=== PATIENT | male | born 1945 | race Caucasian/White ===

== ENCOUNTER 2017-10-22 12:02 | Emergency (ER) | payer OTHER ==
[~2017-10-22] VITALS: Ht 165.1 cm; Wt 95.2 kg
[~2017-10-22 12:02] MED LIST: GABA100; GABA300 PO; LORA.5 PO; Norco 5-325 Ta1 EACH PO; ONDA4ODT; ROXICODONE5 MG PO
[2017-10-22] MEDS ORDERED: GLIP2.5ER PO (12:33)
[2017-10-22] MEDS ORDERED: VITAMIN D250000 UNIT PO (12:33)
[2017-10-22] MEDS ORDERED: BACL10 PO (12:33)
== END 2017-10-22 13:31 | disposition home or self-care (01) ==
LOC: ER 12:02
DX: S82.62XA Displaced fracture of lateral malleolus of left fibula, initial encounter for closed fracture (principal); X50.9XXA Other and unspecified overexertion or strenuous movements or postures, initial encounter; Z88.0 Allergy status to penicillin; Z88.5 Allergy status to narcotic agent; Z79.899 Other long term (current) drug therapy; F17.200 Nicotine dependence, unspecified, uncomplicated
CPT/HCPCS: 29515; 73610; 99283

== ENCOUNTER 2019-05-31 19:21 | Emergency (ER) | payer OTHER ==
[~2019-05-31] VITALS: Ht 165.1 cm; Wt 99.8 kg
[~2019-05-31 19:21] MED LIST changes: +BACL10 PO; +GLIP2.5ER PO; +VITAMIN D250000 UNIT PO
[2019-05-31] MEDS ORDERED: METF500 PO (19:42)
[2019-05-31] MEDS ORDERED: PREG75 PO (19:42)
[2019-05-31] MEDS ORDERED: THERA-D2000 UNIT PO (19:43)
[2019-05-31] MEDS ORDERED: ACET500 PO (19:43)
[2019-05-31] MEDS ORDERED: BISA10S PR (19:44)
[2019-05-31 19:50] LABS: BASOPHILS ABSOLUTE AUTO 0.11 K/mm3 (0.00-0.23); BASOPHILS PERCENT AUTO 1 % (0-2); EOSINOPHILS ABSOLUTE AUTO 1.29 K/mm3 (0.00-0.68); EOSINOPHILS PERCENT AUTO 10 % (0-6); Hematocrit 41.5 % (37.0-53.0); Hemoglobin 13.4 g/dL (13.5-17.5); IMMATURE GRAN ABSOLUTE AUTO 0.15 K/mm3 (0.00-0.10); IMMATURE GRAN PERCENT AUTO 1 % (0-1); LYMPHOCYTES ABSOLUTE AUTO 2.25 K/mm3 (0.84-5.20); LYMPHOCYTES PERCENT AUTO 17 % (21-46); MONOCYTES ABSOLUTE AUTO 1.04 K/mm3 (0.16-1.47); MONOCYTES PERCENT AUTO 8 % (4-13); Mean Corpuscular HGB 31.5 pg (26.0-34.0); Mean Corpuscular HGB Conc 32.3 g/dL (31.5-36.5); Mean Corpuscular Volume 97 fL (80-100); Mean Platelet Volume 11.4 fL (9.1-12.4); NEUTROPHILS PERCENT AUTO 64 % (41-73); Platelet Count 239 K/mm3 (150-400); RDW Coefficient Variation 13.3 % (11.7-14.2); RDW Standard Deviation 47.4 fL (35.1-46.3); Red Blood Cell Count 4.26 M/mm3 (4.30-5.90); White Blood Cell Count 13.34 K/mm3 (4.00-11.30)
[2019-05-31 20:24] LABS: Albumin, Blood 3.2 g/dL (3.4-5.0); Albumin/Globulin Ratio 0.8 (0.8-1.8); Bilirubin, Total 0.1 mg/dL (0.1-1.0); Bun/Creatinine Ratio 15.1 (12.0-20.0); Calcium, Blood 8.7 mg/dL (8.5-10.1); Creatinine, Blood 1.52 mg/dL (0.60-1.20); Globulin, Blood 3.8 g/dL (2.2-4.0); Potassium, Blood 4.5 mmol/L (3.5-5.5)
[2019-05-31] MEDS ORDERED: MOTION RELIEF25 MG PO ×2 (21:40→22:03)
== END 2019-05-31 22:40 | disposition home or self-care (01) ==
LOC: ER 19:21
PROVIDERS: Emergency Medicine
DX: M54.2 Cervicalgia (principal); R42 Dizziness and giddiness; E11.9 Type 2 diabetes mellitus without complications; G80.9 Cerebral palsy, unspecified; Z87.891 Personal history of nicotine dependence; Z88.0 Allergy status to penicillin; Z88.5 Allergy status to narcotic agent; Z88.8 Allergy status to other drugs, medicaments and biological substances
CPT/HCPCS: 70450; 72125; 80053; 85025; 93005; 93010; 99284-25

== ENCOUNTER 2020-04-11 11:25 | Emergency (ER) | payer OTHER ==
[~2020-04-11] VITALS: Ht 165.1 cm; Wt 83.9 kg
[~2020-04-11 11:25] MED LIST changes: +ACET500 PO; +BISA10S PR; +BISMATROL525 MG/15 PO; +FURO20 PO; +METF500 PO; +MOTION RELIEF25 MG PO; +PREG75 PO; +THERA-D2000 UNIT PO; +TIZA4 PO; +VITAMIN D32000 UNI1 PO; +Zithromax250 MG PO
[2020-04-11] MEDS ORDERED: PREG300 PO (12:35)
[2020-04-11] MEDS ORDERED: METF500 PO (12:35)
[2020-04-11] MEDS ORDERED: TIZA4 PO (12:35)
[2020-04-11] MEDS ORDERED: Vitamin D2000 UNIT PO (12:35)
[2020-04-11 14:38] LABS: BASOPHILS ABSOLUTE AUTO 0.02 K/mm3 (0.00-0.23); BASOPHILS PERCENT AUTO 0 % (0-2); EOSINOPHILS ABSOLUTE AUTO 0.23 K/mm3 (0.00-0.68); EOSINOPHILS PERCENT AUTO 4 % (0-6); Hematocrit 46.6 % (37.0-53.0); Hemoglobin 15.1 g/dL (13.5-17.5); IMMATURE GRAN ABSOLUTE AUTO 0.04 K/mm3 (0.00-0.10); IMMATURE GRAN PERCENT AUTO 1 % (0-1); LYMPHOCYTES ABSOLUTE AUTO 1.55 K/mm3 (0.84-5.20); LYMPHOCYTES PERCENT AUTO 29 % (21-46); MONOCYTES ABSOLUTE AUTO 0.91 K/mm3 (0.16-1.47); MONOCYTES PERCENT AUTO 17 % (4-13); Mean Corpuscular HGB 30.3 pg (26.0-34.0); Mean Corpuscular HGB Conc 32.4 g/dL (31.5-36.5); Mean Corpuscular Volume 93 fL (80-100); Mean Platelet Volume 12.6 fL (9.1-12.4); NEUTROPHILS ABSOLUTE AUTO 2.56 K/mm3 (1.96-9.15); NEUTROPHILS PERCENT AUTO 48 % (41-73); Platelet Count 121 K/mm3 (150-400); RDW Coefficient Variation 13.5 % (11.7-14.2); RDW Standard Deviation 45.5 fL (35.1-46.3); Red Blood Cell Count 4.99 M/mm3 (4.30-5.90); White Blood Cell Count 5.31 K/mm3 (4.00-11.30)
[2020-04-11 16:15] LABS: Albumin/Globulin Ratio 0.7 (0.8-1.8); Bilirubin, Total 0.3 mg/dL (0.1-1.0); Bun/Creatinine Ratio 19.3 (12.0-20.0); Calcium, Blood 8.4 mg/dL (8.5-10.1); Creatinine, Blood 1.4 mg/dL (0.60-1.20); Globulin, Blood 4.3 g/dL (2.2-4.0); Total Protein, Blood 7.3 g/dL (6.4-8.2)
== END 2020-04-11 18:15 | disposition home or self-care (01) ==
LOC: ER 11:25
PROVIDERS: Physician Assistant
DX: U07.1 COVID-19 (principal); F22 Delusional disorders; E11.9 Type 2 diabetes mellitus without complications; F17.200 Nicotine dependence, unspecified, uncomplicated
CPT/HCPCS: 36415; 70450; 71045; 80053; 85025; 99285-25

== ENCOUNTER 2020-07-24 12:13 | Emergency (ER) | payer OTHER ==
[~2020-07-24] VITALS: Ht 165.1 cm; Wt 86.2 kg
[~2020-07-24 12:13] MED LIST changes: +PREG300 PO; +Vitamin D2000 UNIT PO
[2020-07-24] MEDS ORDERED: FUROSEMIDE20 MG PO (13:08)
== END 2020-07-24 18:02 | disposition home or self-care (01) ==
LOC: ER 12:13
DX: J40 Bronchitis, not specified as acute or chronic (principal); E11.9 Type 2 diabetes mellitus without complications; F17.200 Nicotine dependence, unspecified, uncomplicated; Z79.84 Long term (current) use of oral hypoglycemic drugs
CPT/HCPCS: 71046; 99284-25

== ENCOUNTER 2020-10-22 00:27 | Day surgery (SDC) | payer OTHER ==
[~2020-10-22 00:27] MED LIST changes: +FUROSEMIDE20 MG PO
== END 2020-10-22 23:28 | disposition home or self-care (01) ==
LOC: WOUND 00:27
DX: E11.621 Type 2 diabetes mellitus with foot ulcer (principal); L97.512 Non-pressure chronic ulcer of other part of right foot with fat layer exposed; L97.519 Non-pressure chronic ulcer of other part of right foot with unspecified severity; E11.622 Type 2 diabetes mellitus with other skin ulcer; L89.892 Pressure ulcer of other site, stage 2; L89.312 Pressure ulcer of right buttock, stage 2; N18.9 Chronic kidney disease, unspecified; E11.22 Type 2 diabetes mellitus with diabetic chronic kidney disease; Z88.5 Allergy status to narcotic agent
CPT/HCPCS: G0463

== ENCOUNTER 2020-10-29 00:55 | Day surgery (SDC) | payer OTHER | END 2020-10-30 02:59 | disposition home or self-care (01) | LOC: WOUND 00:55 | DX: E11.621 Type 2 diabetes mellitus with foot ulcer (principal); L97.519 Non-pressure chronic ulcer of other part of right foot with unspecified severity; L89.312 Pressure ulcer of right buttock, stage 2; E11.622 Type 2 diabetes mellitus with other skin ulcer; L89.892 Pressure ulcer of other site, stage 2 | CPT/HCPCS: A9270; G0463 ==

== ENCOUNTER 2020-11-05 00:39 | Day surgery (SDC) | payer OTHER | END 2020-11-05 23:42 | disposition home or self-care (01) | LOC: WOUND 00:39 | DX: E11.621 Type 2 diabetes mellitus with foot ulcer (principal); L97.512 Non-pressure chronic ulcer of other part of right foot with fat layer exposed; L97.519 Non-pressure chronic ulcer of other part of right foot with unspecified severity; L89.899 Pressure ulcer of other site, unspecified stage; L89.312 Pressure ulcer of right buttock, stage 2; L89.322 Pressure ulcer of left buttock, stage 2; Z99.3 Dependence on wheelchair | CPT/HCPCS: A9270 ==

== ENCOUNTER 2020-11-15 01:26 | Day surgery (SDC) | payer OTHER | END 2020-11-15 23:55 | disposition home or self-care (01) | LOC: WOUND 01:26 | DX: E11.621 Type 2 diabetes mellitus with foot ulcer (principal); L97.512 Non-pressure chronic ulcer of other part of right foot with fat layer exposed; E11.622 Type 2 diabetes mellitus with other skin ulcer; L89.892 Pressure ulcer of other site, stage 2; L89.95 Pressure ulcer of unspecified site, unstageable; L89.312 Pressure ulcer of right buttock, stage 2 | CPT/HCPCS: A9270 ==

== ENCOUNTER 2020-11-27 04:17 | Day surgery (SDC) | payer OTHER | END 2020-11-27 23:00 | disposition home or self-care (01) | LOC: WOUND 04:17 | DX: L89.892 Pressure ulcer of other site, stage 2 (principal); E11.621 Type 2 diabetes mellitus with foot ulcer; L97.522 Non-pressure chronic ulcer of other part of left foot with fat layer exposed; E11.622 Type 2 diabetes mellitus with other skin ulcer; I73.9 Peripheral vascular disease, unspecified; I87.2 Venous insufficiency (chronic) (peripheral); N39.42 Incontinence without sensory awareness; Z88.5 Allergy status to narcotic agent; Z88.0 Allergy status to penicillin | CPT/HCPCS: A9270; G0463 ==

== ENCOUNTER 2020-12-12 01:23 | Day surgery (SDC) | payer OTHER | END 2020-12-12 23:15 | disposition home or self-care (01) | LOC: WOUND 01:23 | DX: L89.892 Pressure ulcer of other site, stage 2 (principal); E11.621 Type 2 diabetes mellitus with foot ulcer; L97.512 Non-pressure chronic ulcer of other part of right foot with fat layer exposed; E11.622 Type 2 diabetes mellitus with other skin ulcer; E11.51 Type 2 diabetes mellitus with diabetic peripheral angiopathy without gangrene; I87.2 Venous insufficiency (chronic) (peripheral); N39.42 Incontinence without sensory awareness | CPT/HCPCS: A9270; G0463 ==

== ENCOUNTER 2020-12-19 01:30 | Day surgery (SDC) | payer OTHER | END 2020-12-19 22:48 | disposition home or self-care (01) | LOC: WOUND 01:30 | DX: E11.621 Type 2 diabetes mellitus with foot ulcer (principal); L97.512 Non-pressure chronic ulcer of other part of right foot with fat layer exposed; L89.892 Pressure ulcer of other site, stage 2; E11.51 Type 2 diabetes mellitus with diabetic peripheral angiopathy without gangrene; I87.2 Venous insufficiency (chronic) (peripheral); N39.42 Incontinence without sensory awareness; Z88.0 Allergy status to penicillin; Z88.5 Allergy status to narcotic agent; Z91.018 Allergy to other foods | CPT/HCPCS: A9270; G0463 ==

== ENCOUNTER 2020-12-26 02:27 | Day surgery (SDC) | payer OTHER | END 2020-12-26 23:18 | disposition home or self-care (01) | LOC: WOUND 02:27 | DX: E11.621 Type 2 diabetes mellitus with foot ulcer (principal); L97.512 Non-pressure chronic ulcer of other part of right foot with fat layer exposed; L97.422 Non-pressure chronic ulcer of left heel and midfoot with fat layer exposed; L89.892 Pressure ulcer of other site, stage 2; E11.622 Type 2 diabetes mellitus with other skin ulcer; E11.51 Type 2 diabetes mellitus with diabetic peripheral angiopathy without gangrene; I87.2 Venous insufficiency (chronic) (peripheral); N39.42 Incontinence without sensory awareness | CPT/HCPCS: A9270; G0463 ==

== ENCOUNTER 2021-01-02 00:27 | Day surgery (SDC) | payer OTHER | END 2021-01-02 23:24 | disposition home or self-care (01) | LOC: WOUND 00:27 | DX: E11.622 Type 2 diabetes mellitus with other skin ulcer (principal); L97.512 Non-pressure chronic ulcer of other part of right foot with fat layer exposed; L89.892 Pressure ulcer of other site, stage 2; E11.621 Type 2 diabetes mellitus with foot ulcer; E11.51 Type 2 diabetes mellitus with diabetic peripheral angiopathy without gangrene; I87.2 Venous insufficiency (chronic) (peripheral); N39.42 Incontinence without sensory awareness | CPT/HCPCS: G0463 ==

== ENCOUNTER 2021-01-16 08:36 | Day surgery (SDC) | payer OTHER | END 2021-01-16 23:52 | disposition home or self-care (01) | LOC: WOUND 08:36 | DX: Z09 Encounter for follow-up examination after completed treatment for conditions other than malignant neoplasm (principal); E11.51 Type 2 diabetes mellitus with diabetic peripheral angiopathy without gangrene; I87.2 Venous insufficiency (chronic) (peripheral); N39.42 Incontinence without sensory awareness; Z99.3 Dependence on wheelchair; Z86.31 Personal history of diabetic foot ulcer | CPT/HCPCS: G0463 ==

== ENCOUNTER 2021-06-28 16:30 | Inpatient (IN) | payer OTHER ==
[~2021-06-28] VITALS: Ht 172.7 cm; Wt 84.7 kg
[2021-06-28] MEDS ORDERED: RYBELSUS7 MG (17:56)
[2021-06-28 18:19] LABS: BASOPHILS ABSOLUTE AUTO 0.12 K/mm3 (0.00-0.23); BASOPHILS PERCENT AUTO 1 % (0-2); EOSINOPHILS ABSOLUTE AUTO 0.33 K/mm3 (0.00-0.68); EOSINOPHILS PERCENT AUTO 2 % (0-6); Hematocrit 38.6 % (37.0-53.0); Hemoglobin 12.6 g/dL (13.5-17.5); IMMATURE GRAN ABSOLUTE AUTO 0.94 K/mm3 (0.00-0.10); IMMATURE GRAN PERCENT AUTO 5 % (0-1); LYMPHOCYTES ABSOLUTE AUTO 1.24 K/mm3 (0.84-5.20); LYMPHOCYTES PERCENT AUTO 7 % (21-46); MONOCYTES ABSOLUTE AUTO 1.39 K/mm3 (0.16-1.47); MONOCYTES PERCENT AUTO 7 % (4-13); Mean Corpuscular HGB 30.3 pg (26.0-34.0); Mean Corpuscular HGB Conc 32.6 g/dL (31.5-36.5); Mean Corpuscular Volume 93 fL (80-100); Mean Platelet Volume 10.9 fL (9.1-12.4); NEUTROPHILS ABSOLUTE AUTO 14.75 K/mm3 (1.96-9.15); NEUTROPHILS PERCENT AUTO 79 % (41-73); Platelet Count 317 K/mm3 (150-400); RDW Coefficient Variation 15.5 % (11.7-14.2); RDW Standard Deviation 53.4 fL (35.1-46.3); Red Blood Cell Count 4.16 M/mm3 (4.30-5.90); White Blood Cell Count 18.77 K/mm3 (4.00-11.30)
[2021-06-28 18:31] LABS: Albumin, Blood 2.7 g/dL (3.4-5.0); Albumin/Globulin Ratio 0.5 (0.8-1.8); Bilirubin, Total 0.3 mg/dL (0.1-1.0); Bun/Creatinine Ratio 14.9 (12.0-20.0); Calcium, Blood 9.9 mg/dL (8.5-10.1); Creatinine, Blood 1.81 mg/dL (0.60-1.20); Globulin, Blood 5.1 g/dL (2.2-4.0); Potassium, Blood 3.9 mmol/L (3.5-5.5); Total Protein, Blood 7.8 g/dL (6.4-8.2)
[2021-06-28 19:34] LABS: Source, Urine Clean Catch
[2021-06-28 19:37] LABS: Bilirubin, Urine Neg (Neg); Blood, Urine 3+ (Neg); Glucose Qualitative, Urine Neg (Neg); Ketones, Urine Neg (Neg); Leukocyte Esterase, Urine 3+ (Neg); Nitrite, Urine Pos (Neg); Protein, Urine 3+ (Neg); Specific Gravity, Urine 1.015 (1.003-1.022); Urobilinogen, Urine NORM (Normal)
[2021-06-28 19:45] LABS: Appearance, Urine Hazy (Clear); Color, Urine Pale Yellow (P-Yellow)
[2021-06-28 19:46] LABS: Amorphous Mod (0-Heavy); Bacteria Many /hpf; Squamous Epithelial Cells Rare /hpf (Few); Yeast/Fungi Urine Rare /hpf
[2021-06-28 19:47] LABS: Granular Casts Rare /lpf (0); Hyaline Casts Rare /lpf (0-2)
[2021-06-28 23:51] LABS: Influenza A, PCR NEGATIVE (NEGATIVE); Influenza B, PCR NEGATIVE (NEGATIVE); Resp Syncytial Virus, PCR NEGATIVE (NEGATIVE); SARS-Cov-2 (COVID-19) PCR, MMC NEGATIVE (NEGATIVE)
[2021-06-29 04:16] LABS: BASOPHILS ABSOLUTE AUTO 0.09 K/mm3 (0.00-0.23); BASOPHILS PERCENT AUTO 1 % (0-2); EOSINOPHILS ABSOLUTE AUTO 0.42 K/mm3 (0.00-0.68); EOSINOPHILS PERCENT AUTO 2 % (0-6); Hematocrit 35.2 % (37.0-53.0); Hemoglobin 11.5 g/dL (13.5-17.5); IMMATURE GRAN ABSOLUTE AUTO 0.82 K/mm3 (0.00-0.10); IMMATURE GRAN PERCENT AUTO 5 % (0-1); LYMPHOCYTES ABSOLUTE AUTO 1.26 K/mm3 (0.84-5.20); LYMPHOCYTES PERCENT AUTO 7 % (21-46); MONOCYTES ABSOLUTE AUTO 1.69 K/mm3 (0.16-1.47); MONOCYTES PERCENT AUTO 9 % (4-13); Mean Corpuscular HGB 30.3 pg (26.0-34.0); Mean Corpuscular HGB Conc 32.7 g/dL (31.5-36.5); Mean Corpuscular Volume 93 fL (80-100); Mean Platelet Volume 10.3 fL (9.1-12.4); NEUTROPHILS PERCENT AUTO 76 % (41-73); Platelet Count 330 K/mm3 (150-400); RDW Coefficient Variation 15.3 % (11.7-14.2); RDW Standard Deviation 52.4 fL (35.1-46.3); Red Blood Cell Count 3.79 M/mm3 (4.30-5.90); White Blood Cell Count 18.08 K/mm3 (4.00-11.30)
[2021-06-29 04:34] LABS: Albumin, Blood 2.4 g/dL (3.4-5.0); Albumin/Globulin Ratio 0.5 (0.8-1.8); Bilirubin, Total 0.3 mg/dL (0.1-1.0); Calcium, Blood 9.9 mg/dL (8.5-10.1); Creatinine, Blood 1.69 mg/dL (0.60-1.20); Globulin, Blood 4.7 g/dL (2.2-4.0); Potassium, Blood 3.6 mmol/L (3.5-5.5); Total Protein, Blood 7.1 g/dL (6.4-8.2)
--- NOTE | 2021-06-29 08:21 | NUR ---
SUMMARY PT ADMITTED TO RM 227. HX CP, ASSISTS WITH REPOSITIONING,BASELINE USES SCOOTER.DENIES CP OR SOB,UNCLEAR HOW INITIAL IV BECAME DISLODGE-CATH INTACT. NEW IV OBTAINED. IV FLUIDS WERE STARTED. PT INCONT CHRONICALLY-UTI.OSTOMY WITH NO OUTPUT.
--- NOTE | 2021-06-29 12:36 | NUR ---
SURGERY: PT TO THE OR AT THIS TIME. SURGICAL PKT COMPLETE. PT PULLED IV OUT AND MULTIPLE ATTEMPTS TO GET 22G IV IN HAND. DAY SURGERY NOTIFIED OF DIFFICULT START. ATTENDS CHANGED PRIOR TO LEAVING FLOOR. PT PLCED IN GOWN. REFUSING PAS R/T PAIN IN LEGS.
--- NOTE | 2021-06-29 13:58 | NUR ---
06/29/21 1358 Jovita Flores NO PREOP ANTIBIOTICS ORDERED PER PATIENT IS ON SCHEDULED ANTIBIOTICS.
--- NOTE | 2021-06-29 18:20 | NUR ---
PT RETURNED TO ROOM FROM OR. PT HAS MALKA MIDLINE WITH SMALL AMT PINKISH DRAINAGE. NGT IN PLACE. IV INFUSING TO 20G IN RIGHT ARM. VSS. BLEVINS DRAINING WELL, FELIX URINE. TELE RESUMED, NSR. PT PULLS AT LINES OCCASIONALLY AND IS REMINDED TO LEAVE THEM IN PLACE. PT REMAINS NPO. OSTOMY REMAINS UNCHANGES, STOMA PINK AND BEEFY. CALL LIGHT IN REACH.
--- NOTE | 2021-06-30 05:30 | NUR ---
SUMMARY PT POSTOP HAS NG TO SX WITH ONLY SCANT DRNG.NO C/O NEEDING ZOFRAN.PT HYPERSENSITIVE TO TOUCH"PAIN" SKIN CAN BE BARELY TOUCHED AND PT LOUDLY CALLS OUT "OUCH" "CAREFUL" REQUIRES IV PAIN MEDS. OSTOMY WITH SCANT LIQ IN BAG.URINARY OUTPUT PER BLEVINS.TELE UNEVENTFUL MALKA MIDLINE IS SX WELL.
[2021-06-30 09:17] LABS: Hematocrit 29.5 % (37.0-53.0); Hemoglobin 9.5 g/dL (13.5-17.5); Mean Corpuscular HGB 30.4 pg (26.0-34.0); Mean Corpuscular HGB Conc 32.2 g/dL (31.5-36.5); Mean Corpuscular Volume 94 fL (80-100); Mean Platelet Volume 10.5 fL (9.1-12.4); Platelet Count 299 K/mm3 (150-400); RDW Coefficient Variation 15.8 % (11.7-14.2); RDW Standard Deviation 54.4 fL (35.1-46.3); Red Blood Cell Count 3.13 M/mm3 (4.30-5.90); White Blood Cell Count 18.06 K/mm3 (4.00-11.30)
[2021-06-30 09:42] LABS: Albumin, Blood 1.7 g/dL (3.4-5.0); Anion Gap 7 mmol/L (6-16); Blood Urea Nitrogen 18 mg/dL (8-24); Bun/Creatinine Ratio 13.3 (12.0-20.0); CO2, Blood 21 mmol/L (21-32); Chloride, Blood 108 mmol/L (98-108); Creatinine, Blood 1.35 mg/dL (0.60-1.20); Glomerular Filtration Rate 52 (60-); Glucose, Blood 187 mg/dL (70-99); Phosphorus, Blood 2.2 mg/dL (2.5-4.9); Potassium, Blood 3.7 mmol/L (3.5-5.5); Sodium, Blood 136 mmol/L (136-145)
[2021-06-30 09:44] LABS: Calcium, Blood 7.5 mg/dL (8.5-10.1)
--- NOTE | 2021-06-30 17:22 | NUR ---
PT. COMPLAINING OF PAIN TODAY, MEDICATED A FEW TIMES PER EMAR AND AT THIS TIME VERBALIZE SATISFACTION. ABDOMINAL PAIN SCORING 8/10. REPOSITIONED THRUOUT DAY . PATIENT RESTING WITH CALL LIGHT IN REACH, KPHOS INFUSING PER MD NEW ORDER. RESP. UNLABORED, NG OUT TODAY PER M.D. TAKING FEW ICE CHIPS, REMAINS NPO.
--- NOTE | 2021-06-30 21:41 | NUR ---
PT. PULLED TELE MONITOR WIRINGS, MALKA DRESSING SUCTION LINE & TRIED PULLING IV LINE. MALKA DRESSING CHANGED, HOOKED BACK TO TELE MONITOR, ABDOMINAL BINDER APPLIED, IV LINE SECURED, SPONGE BATH & CATHETER CARE DONE, PT. TOLERATED WELL. REPOSITIONED PT. FOR COMFORT, WILL CONTINUE TO MONITOR. PO PAIN MEDICINE GIVEN WITH SMALL SIP OF WATER PER PRIMARY CARE RN.
--- NOTE | 2021-07-01 01:51 | NUR ---
WORKING DATA ENTRY MACHINE OPERATOR TONIGHT, GIVING PT'S MEDS PER PRIMARY RN/CN TONIGHT.
[2021-07-01 04:28] LABS: Hematocrit 28.9 % (37.0-53.0); Hemoglobin 9.2 g/dL (13.5-17.5); Mean Corpuscular HGB 30.5 pg (26.0-34.0); Mean Corpuscular HGB Conc 31.8 g/dL (31.5-36.5); Mean Corpuscular Volume 96 fL (80-100); Mean Platelet Volume 10.1 fL (9.1-12.4); Platelet Count 323 K/mm3 (150-400); RDW Standard Deviation 56.2 fL (35.1-46.3); Red Blood Cell Count 3.02 M/mm3 (4.30-5.90); White Blood Cell Count 16.39 K/mm3 (4.00-11.30)
[2021-07-01 04:58] LABS: Albumin, Blood 1.9 g/dL (3.4-5.0); Anion Gap 6 mmol/L (6-16); Blood Urea Nitrogen 17 mg/dL (8-24); Bun/Creatinine Ratio 12.8 (12.0-20.0); CO2, Blood 23 mmol/L (21-32); Calcium, Blood 7.8 mg/dL (8.5-10.1); Chloride, Blood 107 mmol/L (98-108); Creatinine, Blood 1.33 mg/dL (0.60-1.20); Glomerular Filtration Rate 53 (60-); Glucose, Blood 125 mg/dL (70-99); Phosphorus, Blood 2.3 mg/dL (2.5-4.9); Potassium, Blood 3.2 mmol/L (3.5-5.5); Sodium, Blood 136 mmol/L (136-145)
--- NOTE | 2021-07-01 07:45 | NUR ---
SUMMARY PT REQUIRING IV PAIN MEDS AND NEW IV SITE TONIGHT. TAKING SIPS PO WITH NO NAUSEA. FELICITY WITH TAHMINA FELIX RETURN. MALKA CHANGED TONIGHT.SX INTACT.
--- NOTE | 2021-07-01 19:27 | NUR ---
SHIFT SUMMARY PT INTERMITTENTLY CONFUSED, OCCASIONALLY CALLS OUT WHICH WAS DISCUSSED AT LENGTH WITH THE PATIENT HOW IMPORTANT IT IS FOR HIM TO USE HIS CALL LIGHT WHEN HE IS IN NEED OF SOMETHING BETWEEN NORMAL HOURLY ROUNDING. PT DID DO BETTER ON USING THE CALL LIGHT DURING THE LAST HALF OF THE SHIFT. C/O PAIN WHICH APPEARS TO BE INTERMITTENT, PT REPORTS SIGNIFICANTLY HIGH LEVELS OF PAIN BUT IS OFTEN PAIN FREE SHORTLY AFTER REPORTING SAID PAIN. ABD BINDER IN PLACE COVERING MIDLINE MALKA. NO ACUTE EVENTS THIS SHIFT. CALL LIGHT IN REACH, REPORT GIVEN TO THOMAS OCHOA.
[2021-07-02 04:26] LABS: Hematocrit 28.8 % (37.0-53.0); Hemoglobin 9.2 g/dL (13.5-17.5); Mean Corpuscular HGB 30.6 pg (26.0-34.0); Mean Corpuscular HGB Conc 31.9 g/dL (31.5-36.5); Mean Corpuscular Volume 96 fL (80-100); Mean Platelet Volume 9.6 fL (9.1-12.4); Platelet Count 345 K/mm3 (150-400); RDW Coefficient Variation 15.9 % (11.7-14.2); RDW Standard Deviation 55.8 fL (35.1-46.3); Red Blood Cell Count 3.01 M/mm3 (4.30-5.90)
--- NOTE | 2021-07-02 04:45 | NUR ---
SHIFT SUMMARY: PT. SOMETIMES IS ALERT & ORIENTED BUT THERE ARE TIMES THAT HE IS CONFUSED SUCH ASKING TO GO TO HIS ROOM HE DOES NOT KNOW WHERE HE IS CURRENTLY AT. SCREAMS A LOT, COMPLAINTS OF ABDOMINAL PAIN MEDICATED, SEE EMAR. INCONTINENT WITH BLADDER, ATTENDS ON.REPOSITIONED SEVERAL TIMES WITHIN THE SHIFT FOR HIS COMFORT. LLQ OSTOMY WITH SMALL AMOUNT OF BLACK STOOLS, BURPED TO RELEASE ACCUMULATED GAS. ABLE TO USE CALL LIGHT & MAKES HIS NEEDS KNOWN.NO S/S OF RESP./CV DISTRESS NOTED, ON TELE WITH SR AT 76 PER MEDICAL SURGERY NURSE SAYRA. LATER IN SHIFT MEDICAL SURGERY NURSE REPORTED A RUN OF 4 PVCs AT ONE TIME THEN CAME BACK TO NSR.WILL CONTINUE TO MONITOR & REPORT TO BRANDO RN TO REPORT HEART RHYTHM TO AMENA SOUZA.
[2021-07-02 04:48] LABS: Bun/Creatinine Ratio 10.7 (12.0-20.0); Calcium, Blood 7.8 mg/dL (8.5-10.1); Creatinine, Blood 1.31 mg/dL (0.60-1.20); Potassium, Blood 3.5 mmol/L (3.5-5.5)
[2021-07-02 05:03] LABS: BAND PERCENT MAN 1 % (0-8); BASOPHILS PERCENT MAN 0 % (0-2); EOSINOPHILS ABSOLUTE MAN 0.65 K/mm3 (0.00-0.68); EOSINOPHILS PERCENT MAN 4 % (0-6); LYMPHOCYTES ABSOLUTE MAN 0.97 K/mm3 (0.84-5.20); LYMPHOCYTES PERCENT MAN 6 % (21-46); METAMYELOCYTE ABSOLUTE MAN 0.48 K/mm3 (0.00-0.00); METAMYELOCYTE PERCENT MAN 3 % (0-0); MONOCYTES ABSOLUTE MAN 0.81 K/mm3 (0.16-1.47); MONOCYTES PERCENT MAN 5 % (4-13); MYELOCYTE ABSOLUTE MAN 0.32 K/mm3 (0.00-0.00); MYELOCYTE PERCENT MAN 2 % (0-0); NEUTROPHILS ABSOLUTE MAN 13.04 K/mm3 (1.96-9.15); SEG NEUTROPHILS PERCENT MAN 79 % (41-73); TOTAL CELLS COUNTED 100
--- NOTE | 2021-07-02 16:30 | NUR ---
SHIFT SUMMARY PT A&OX3, VSS/RA, CBGS CNI, TELE NSR @ 76 BPM. POD3 EX LAP AZRA, MALKA D/I WNL. PAIN TREATED WITH 5 MG NORCO Q4P. GUILLE PO, DENIES N&V. OSTOMY WITH LOW AMT DK STOOL OUT, FLATUS+. IVF KVO, ABX SCHEDULED PER EMAR. LIFT PT TO CHAIR, UP T/O SHIFT. VOIDING WELL/INCONTINENT-ATTENDS ON. WILL REPORT TO ONCOMING NOC DON.
--- NOTE | 2021-07-03 05:28 | NUR ---
PT IS ALERT AND SEEMS CONFUSED AT TIMES. EASY TO REDIRECT. PAIN MEDICATION WAS GIVEN FOR BACK PAIN. ABDOMEN IS UNCOMFORTABEL. ONCE THE PT COMPLAINT OF NAUSEA BUT DENIED A NEED FOR MEDICATION. MIDLINE INCISION WITH MALKA DRESSING. OSTOMY BAG WITH PASTY GREENISH OUTPUT. INCONTINENT OF URINE; WEARING BRIEFS; VOIDING LARGE AMOUNT. DRINING WATER. LOWER EXTREMETIES WITH EDEMA. PT GOT TRANSFERED TO BED USING THE LIFT.
--- NOTE | 2021-07-03 07:05 | NUR ---
TELE: 54
--- NOTE | 2021-07-03 18:38 | NUR ---
SHIFT SUMMARY PATIENT ALERT AND ORIENTED. FOLLOWS DIRECTIONS. REPORTS GENERALIZED ABD PAIN, MEDICATED PER EMAR. SMALL AMOUNT OF SOFT OUTPUT IN COLOSTOMY THIS SHIFT. SOMEIMTES INC OF URINE. BURPING OCC. MIDLINE INCISION WITH MALKA SCANT DRAINAGE.
--- NOTE | 2021-07-04 04:39 | NUR ---
PT IS A&O, FORGETFUL AT TIMES, DOES NOT USE CALL LIGHT. HERE FOR ABD ABSCESS. HAS OSTOMY, PRODUCTIVE AND PASSING FLATUS. COMPLAINTS OF ABD PAIN, PRN NORCO GIVEN WITH MODERATE RESULTS. PT IS INCONTINENT AT TIMES. PIV IN RFA D/C'D D/T INFULTRATION, NEW IV STARTED IN LAC. PT HYPERTENSIVE THIS SHIFT, NO BP MEDS ORDERED. SCHEDULED ABX Q4H.
--- NOTE | 2021-07-04 16:48 | NUR ---
SHIFT SUMMARY PT A/O X2 WITH MOMENTS OF FORGETFULNESS. PT CAN BE IRRITABLE BUT THEN APOLOGETIC AND IS OVERAL COOPERATIVE WITH CARE. THIS IS HIS BASELINE. MIDLINE MALKA DRESSING DRY AND INTACT. OSTOMY PUTTING OUT PASTE-LIKE STOOL. PT RECEIVING IV ANTIBIOTICS AND WILL POSSIBLY DC TOMORROW. VSS. WILL REPORT TO THOMAS OCHOA.
--- NOTE | 2021-07-05 00:14 | NUR ---
ASSUMED CARE. PT IS ALERT RESTING IN BED.PRODUCTIVE COUGH OF CLEAR SPUTUM.
[2021-07-05 04:17] LABS: Hematocrit 29.6 % (37.0-53.0); Hemoglobin 9.2 g/dL (13.5-17.5); Mean Corpuscular HGB 29.9 pg (26.0-34.0); Mean Corpuscular HGB Conc 31.1 g/dL (31.5-36.5); Mean Corpuscular Volume 96 fL (80-100); Platelet Count 426 K/mm3 (150-400); RDW Standard Deviation 56.7 fL (35.1-46.3); Red Blood Cell Count 3.08 M/mm3 (4.30-5.90)
[2021-07-05 05:38] LABS: BASOPHILS PERCENT MAN 0 % (0-2); EOSINOPHILS PERCENT MAN 4 % (0-6); LYMPHOCYTES % ATYPICAL MANUAL 1 % (0-0); LYMPHOCYTES PERCENT MAN 11 % (21-46); METAMYELOCYTE ABSOLUTE MAN 0.17 K/mm3 (0.00-0.00); METAMYELOCYTE PERCENT MAN 1 % (0-0); MONOCYTES ABSOLUTE MAN 1.22 K/mm3 (0.16-1.47); MONOCYTES PERCENT MAN 7 % (4-13); MYELOCYTE PERCENT MAN 8 % (0-0); SEG NEUTROPHILS PERCENT MAN 68 % (41-73); TOTAL CELLS COUNTED 100
--- NOTE | 2021-07-05 17:24 | NUR ---
SHIFT SUMMARY: POD 6 ABD ABSCESS WITH OSTOMY PATIENT IS ALERT AND ORIENTED X4. VS ARE WNL AND IS ON RA. PAIN IS MANAGED WTH PO NORCO. PATIENT HAS BEEN MAINLY IRRITATED FOR NOT BEING ABLE TO GO HOME UNTIL THURSDAY. HE HAS POOR INTAKE OF FOOD AND REFUSES MOST OPTIONS OF FOOD. HE WAS ABLE TO EAT HALF A POPCICLE, 1 FRIED EGG, AND A SMALL JUICE. OSTOMY IS C/D/I WITH DARK BROWN STOOL IN BAG AND PASSES GAS. PATIENT IS WHEELCHAIR BOUND AT BASELINE SO HE HAS BEEN REPOSITIONING HIMSELF IN BED. HE IS ALSO INCONTINENT AND NEEDS HIS ATTENDS CHANGED PRN. CALLS APPROPRIATELY SOMETIMES BUT SOMETIMES YELLS INTO THE HALLWAY. CALL LIGHT WITHIN REACH. THE PLAN IS THAT HE WILL GO BACK TO [facility] ON THURSDAY. PATIENT ALREADY HAS HIS FOLLOW UP APPOINTMENT WITH DR. ROBISON AND DR. NUNEZ (ONCOLOGY) SCHEDULED (CHECK DISCHARGE).
--- NOTE | 2021-07-06 05:11 | NUR ---
SHIFT SUMMARY POD7 S/P EXP LAP, LYSIS ADHESION, SB RESECTION. VSS. PT ALERT AND ORIENTEDX3. PT REPORTS PAIN ON HIS R HEEL. BILATERAL HEEL WRAPPED WITH CUSION FOR PROTECTION. BILATERAL LEGS WERE ELEVATED WITH THE PILLOW. SCD'S IN PLACED. TOLERATING PO INTAKE. INCONTINENT VOIDING WITH ATTENDS IN PLACED. OSTOMY WITH DARK GREEN PASTY OUTPUT ABOUT 200 MLS T/O SHIFT. PT DENIES ABD PAIN, NAUSEA AND VOMITING. BT PRESENT AND ACTIVE. REPOSITIONED Q2 IN BED. MALKA DRESSING WAS CHANGED TO MEDIPORE. ELA APPEARS TO BE INTACT WITH MILD DRAINAGE. OSTOMY BAG IS PASSING GAS. PT SLEPT GOOD OVERNIGHT. CALL LIGHT WITHIN REACH. WILL PROVIDE REPORT TO ONCOMING NURSE.
--- NOTE | 2021-07-06 18:31 | NUR ---
SHIFT SUMMARY POD 7 EXP LAP, LYSIS OF ADHESIONS, SMALL BOWEL RESECTION W/ DR. ROBISON. MIDLINE INCISION W/ ROLAND DRSG, C/D/I, OSTOMY TO RLQ WITH DARK BROWN/GREEN LIQUID, STOMA IS PINK AND WNL. CALLS WHEN BAG NEEDS EMPTIED OR BURPED, REPORTS HAVING SOMEONE TAKE CARE OF IT FOR HIM AT HOME (ROBERT GREER). PT DENIES ABD PAIN & N/V. REPORTS TOP OF FEET HURTING, REMOVED SOCKS FOR COMFORT, BLE ELEVATED ON PILLOWS. MECH SOFT DIET, MODERATE INTAKE. PT HAS STATED HE DOES NOT LIKE THE GROUND FOOD AND NOTHING GROUND SOUNDS GOOD TO HIM, CONT TO ENCOURAGE NUTRITION INTAKE. PT IS A&O, VSS, BP REMAINS HIGH, DENIES CP/SOB, CBG AC/HS, REFUSED INSULIN COVERAGE TODAY. HE IS W/C BOUND AT BASELINE, REPOSITIONS HIMSELF FREQ IN BED. INCONT OF URINE W/ ATTENDS IN PLACE & CHANGED FREQ. PT IS ABLE TO REPORT WHEN HIS ATTENDS ARE WET. SMALL MEPILEX PLACED ON COCYX. PT IS EASILY IRRITABLE AT TIMES, CALLS APPROP SOMETIMES, BUT IS IMPATIENT AND CALLS OUT AT TIMES. WILL CONTINUE TO MONITOR AND REPORT TO ONCOMING RN.
--- NOTE | 2021-07-07 04:50 | NUR ---
SHIFT SUMMARY: PT. ALERT & ORIENTED, VERBALIZES NEEDS, USES CALL LIGHT.INCONTINENT WITH BLADDER. R OSTOMY DRAINING SMALL AMOUNT OF DARK SOFT STOOLS, DRAINED & CLEANED WITH WATER. FREQUENT ROUNDS PER PROTOCOL THEN PRN TO KEEP DRY RELATED TO FREQUENT VOIDING.NO S/S OF RESP./CV DISTRESS NOTED. WILL CONTINUE TO MONITOR.
--- NOTE | 2021-07-07 14:06 | NUR ---
PT COMPLAINS OF PAIN IN BOTH FEET. ELEVATED BLE, REQUESTED SOCKS ON AND HEEL PROTECTORS ON. PT REPORTS PAIN IS ANYTIME HIS FEET ARE TOUCHED, ALTHOUGH HE CANNOT DIFFERIENTIATE FROM WHEN I AM TOUCHING HIS FEET & NOT TOUCHING HIS FEET. OFFERED PAIN MEDICATION, PT REFUSED. WILL CONTINUE TO REPOSITION Q2 OR PRN.
--- NOTE | 2021-07-07 16:15 | NUR ---
EDUCATED PT ON USE OF IS AT BEDSIDE. PT STATES HE "DOESNT NEED THAT", "I HAVE NO PROBLEM BREATHING". WILL CONTINUE TO ENCOURAGE IS USE.
--- NOTE | 2021-07-07 17:48 | NUR ---
SHIFT SUMMARY POD 8 EXP LAP, LYSIS OF ADHESIONS, SMALL BOWEL RESECTION W/ DR. ROBISON. CHRONIC OSTOMY TO RLQ. MIDLINE INCISION W/ ROLAND RODRIGUEZ, C/D/I. PT DENIES ABD PAIN FROM SURGERY. OSTOMY DRNG BROWN/GREEN LIQUID & FLATUS. PT IS INCONT OF URINE, ATTENDS IN PLACE. FREQUENTLY REPOSITIONS SELF IN BED. FREQUENT C/O FEET PAIN, REFUSED PAIN MEDICATION. ELEVATED BLE, HEEL PROTECTORS ON. CBG AC/HS, REFUSES INSULIN WHEN COVERAGE INDICATED. ANXIOUS TO GO HOME & EASILY IRRITABLE ABOUT BEING HERE STILL. FREQ USES CALL LIGHT & CALLS OUT. WILL REPORT TO ONCOMING RN.
--- NOTE | 2021-07-07 21:17 | NUR ---
EDUCATED PT ON PROPER CALL LIGHT USE.
--- NOTE | 2021-07-08 03:48 | NUR ---
SHIFT SUMMARY: PT. ALERT & ORIENTED, EASILY GETS IRRITATED WHEN DEMANDS NOT GIVEN RIGHT AWAY. REPOSITION SEVERAL TIMES FOR COMFORT & SKIN CARE. COMPLAINTS OF LEG PAINS MEDICATED PER EMAR, SOMETIMES PT. REFUSED TO TAKE PAIN MEDICINE HE SAID " PAIN IS NORMAL IN LIFE". BLADDER INCONTINENCE, ATTENDS ON. NEEDS ATTENDED TO. OSTOMY DRAINS MODERATE AMOUNT OF DARK BROWN SOFT STOOLS. NO ACUTE CHANGES NOTED. WILL CONTINUE TO MONITOR.
--- NOTE | 2021-07-08 05:58 | NUR ---
PT. HAD A BED BATH THIS MORNING, OSTOMY BAG CARE DONE & CLEANED WITH TAP WATER, BAG IS INTACT.
--- NOTE | 2021-07-08 08:00 | NUR ---
PT PLEASNT COOP THIS AM. NO C/O PAIN. OSTOMY IN PLACE. H/R REG, NO MURMER NOTED. NO TELE. LUNGS CLEAR, RESP EASY, UNLABORED. ON R/A. BT ACTIVE. SMALL BROWN BM UNFORMED IN BAG. VOIDS INCONT IN ATTTENDS. PT IS LIFT STATUS. WHEELCHAIR AT BASELINE. BED IN LOW POSITION,C A LL LITE IN REACH, CALLS APPROP
[2021-07-08] MEDS ORDERED: VITAMIN D31000 UNI1 PO (10:34)
[2021-07-08] MEDS ORDERED: HYDR1TAB94 PO (10:35)
[2021-07-08] MEDS ORDERED: MIRALAX17 GM PO (10:36)
--- NOTE | 2021-07-08 18:18 | NUR ---
PT WAS EXPECTED TO BE DISCHARGED TODAY. BERHANE GREER REFUSED TODAY, PLANNED FOR TOMORROW 9 AM. B/P SOME ELEVATED TONITE. DISCUSSED WITH DR GUITÉRREZ THIS [place]. WILL WATCH, NO ORDERS. BERHANE GREER DID COME AND ASSESS. NO NEW CONCERNS NOTED BED IN LOW POSITION, CALL LITE IN REACH, CALLS APPROP
--- NOTE | 2021-07-09 09:30 | NUR ---
PT DISCHARGED TO [facility]. BELONGINGS AND INSTRUCTIONS WITH PT ON DISCHARGE. DID HAVE HIS OWN [facility] AND WAS TRANSFERED TO / BY LIFT. [facility] HERE TO PICK PT UP AT 0915.
== END 2021-07-09 09:15 | disposition home or self-care (01) | DRG 329 ==
LOC: ER 16:30 → SURS 16:31
PROVIDERS: Emergency Medicine; Internal Medicine; Surgery; ADMIT Internal Medicine
PROC: 0DB80ZZ Excision of Small Intestine, Open Approach (ICD-10-PCS; principal; 2021-06-29 11:45)
PROC: 0DN80ZZ Release Small Intestine, Open Approach (ICD-10-PCS; 2021-06-29 11:45)
PROC: 0W9G0ZZ Drainage of Peritoneal Cavity, Open Approach (ICD-10-PCS; 2021-06-29 11:45)
DX: C49.A3 Gastrointestinal stromal tumor of small intestine (principal); K65.1 Peritoneal abscess; K56.609 Unspecified intestinal obstruction, unspecified as to partial versus complete obstruction; E87.1 Hypo-osmolality and hyponatremia; Z20.822 Contact with and (suspected) exposure to COVID-19; D72.829 Elevated white blood cell count, unspecified; E83.39 Other disorders of phosphorus metabolism; E87.6 Hypokalemia; B95.2 Enterococcus as the cause of diseases classified elsewhere; I12.9 Hypertensive chronic kidney disease with stage 1 through stage 4 chronic kidney disease, or unspecified chronic kidney disease; E11.22 Type 2 diabetes mellitus with diabetic chronic kidney disease; Z74.01 Bed confinement status; N18.30 Chronic kidney disease, stage 3 unspecified; G80.9 Cerebral palsy, unspecified; F60.9 Personality disorder, unspecified; F17.210 Nicotine dependence, cigarettes, uncomplicated; Z79.84 Long term (current) use of oral hypoglycemic drugs; Z28.21 Immunization not carried out because of patient refusal; Z79.899 Other long term (current) drug therapy; Z93.2 Ileostomy status; Z90.49 Acquired absence of other specified parts of digestive tract; Z88.0 Allergy status to penicillin; Z88.5 Allergy status to narcotic agent; Z88.6 Allergy status to analgesic agent
CPT/HCPCS: 0241U; 36415; 51701; 74018; 74177; 80048; 80053; 80069; 81001; 82947; 83605; 83690; 83880; 85025; 85027; 87040; 87070; 87075; 87077; 87086; 87186; 87205; 88309; 88341; 88342; 93005; 93010; 96365-59; 96366-59; 96375-59; 99285-25; A9270; G0378; J0290; J0692; J0696; J1100; J1170; J1650; J1885; J2250; J2405; J2704; J3010; J3480; J7030; J7040; J7060; J7120; Q9967

== ENCOUNTER 2021-09-06 21:27 | Emergency (ER) | payer OTHER ==
[~2021-09-06] VITALS: Ht 165.1 cm; Wt 81.7 kg
[~2021-09-06 21:27] MED LIST changes: +HYDR1TAB94 PO; +MIRALAX17 GM PO; +RYBELSUS7 MG; +VITAMIN D31000 UNI1 PO
[2021-09-06] MEDS ORDERED: MECL25 PO (21:57)
[2021-09-06] MEDS ORDERED: DULCOLAX400 MG/5 M PO (21:58)
[2021-09-06] MEDS ORDERED: CORTISONE60 GM TP (21:58)
[2021-09-06] MEDS ORDERED: BISA10S PR (21:59)
[2021-09-06] MEDS ORDERED: VITAMIN D310 MC4 (21:59)
[2021-09-06] MEDS ORDERED: HYDROCODONE-AC1 EA17 PO (22:00)
[2021-09-06] MEDS ORDERED: PEPTO-BISMOL T262 M2 PO (22:00)
[2021-09-06] MEDS ORDERED: NYSTOP15 GM TOP (22:11)
[2021-09-06] MEDS ORDERED: RYBELSUS3 MG PO (22:12)
[2021-09-06 23:27] LABS: BASOPHILS ABSOLUTE AUTO 0.07 K/mm3 (0.00-0.23); BASOPHILS PERCENT AUTO 0 % (0-2); EOSINOPHILS ABSOLUTE AUTO 0.83 K/mm3 (0.00-0.68); EOSINOPHILS PERCENT AUTO 5 % (0-6); Hemoglobin 10.8 g/dL (13.5-17.5); IMMATURE GRAN ABSOLUTE AUTO 0.21 K/mm3 (0.00-0.10); IMMATURE GRAN PERCENT AUTO 1 % (0-1); LYMPHOCYTES ABSOLUTE AUTO 2.29 K/mm3 (0.84-5.20); LYMPHOCYTES PERCENT AUTO 14 % (21-46); MONOCYTES ABSOLUTE AUTO 1.16 K/mm3 (0.16-1.47); MONOCYTES PERCENT AUTO 7 % (4-13); Mean Corpuscular HGB 31.5 pg (26.0-34.0); Mean Corpuscular HGB Conc 31.8 g/dL (31.5-36.5); Mean Corpuscular Volume 99 fL (80-100); Mean Platelet Volume 10.5 fL (9.1-12.4); NEUTROPHILS ABSOLUTE AUTO 12.28 K/mm3 (1.96-9.15); NEUTROPHILS PERCENT AUTO 73 % (41-73); Platelet Count 318 K/mm3 (150-400); RDW Coefficient Variation 13.4 % (11.7-14.2); RDW Standard Deviation 49.2 fL (35.1-46.3); Red Blood Cell Count 3.43 M/mm3 (4.30-5.90); White Blood Cell Count 16.84 K/mm3 (4.00-11.30)
[2021-09-07 00:13] LABS: Alanine Aminotransfer (ALT/SGP 23 U/L (12-78); Albumin, Blood 2.7 g/dL (3.4-5.0); Albumin/Globulin Ratio 0.8 (0.8-1.8); Alk Phos 86 U/L (50-136); Anion Gap 7 mmol/L (6-16); Aspartate Aminotrans (AST/SGOT 13 U/L (12-37); Bilirubin, Total <0.1 mg/dL (0.1-1.0); Blood Urea Nitrogen 33 mg/dL (8-24); Bun/Creatinine Ratio 16.6 (12.0-20.0); CO2, Blood 24 mmol/L (21-32); Calcium, Blood 8.6 mg/dL (8.5-10.1); Chloride, Blood 105 mmol/L (98-108); Creatinine, Blood 1.99 mg/dL (0.60-1.20); Globulin, Blood 3.4 g/dL (2.2-4.0); Glomerular Filtration Rate 33 (60-); Glucose, Blood 128 mg/dL (70-99); Potassium, Blood 3.5 mmol/L (3.5-5.5); Sodium, Blood 136 mmol/L (136-145); Total Protein, Blood 6.1 g/dL (6.4-8.2)
== END 2021-09-07 03:16 | disposition home or self-care (01) ==
LOC: ER 21:27
PROVIDERS: Student in an Organized Health Care Education/Training Program
DX: N17.9 Acute kidney failure, unspecified (principal); E11.9 Type 2 diabetes mellitus without complications; F17.210 Nicotine dependence, cigarettes, uncomplicated; Z88.4 Allergy status to anesthetic agent; Z88.5 Allergy status to narcotic agent; Z88.0 Allergy status to penicillin; Z88.8 Allergy status to other drugs, medicaments and biological substances; Z79.84 Long term (current) use of oral hypoglycemic drugs; Z93.3 Colostomy status
CPT/HCPCS: 74177; 80053; 83605; 83690; 85025; J7120; Q9967